=== PATIENT | male | born 1940 ===

== ENCOUNTER → 2024-01-27 | Outpatient (CLI) | payer OTHER ==
[~2024-01-27] MED LIST: CIPR250 PO; FURO20; HYDACE5 PO; OXYACE7.5T PO; POTCHL10ER; RXOXYACE PO
[2024-01-27 17:30] LABS: Source, Urine Clean Catch
[2024-01-27 18:57] LABS: Appearance, Urine Clear (Clear); Bilirubin, Urine Neg (Neg); Blood, Urine Neg (Neg); Color, Urine Yellow (P-Yellow); Glucose Qualitative, Urine Neg (Neg); Ketones, Urine Neg (Neg); Leukocyte Esterase, Urine 1+ (Neg); Nitrite, Urine Neg (Neg); Protein, Urine Neg (Neg); Urobilinogen, Urine NORM (Normal)
[2024-01-27 19:16] LABS: Red Blood Cells, Urine 0-2 /hpf (0-2)
[2024-01-27 19:17] LABS: Bacteria Few /hpf; Squamous Epithelial Cells Not Seen /hpf (Few)
== END ==
LOC: LAB SHORT 17:27 → LAB 17:27
PROVIDERS: Surgery
DX: C61 Malignant neoplasm of prostate (principal)
CPT/HCPCS: 81001; 87086

== ENCOUNTER 2024-10-05 10:25 | Day surgery (SDC) | payer OTHER ==
[~2024-10-05] VITALS: Ht 175.3 cm; Wt 90.3 kg
[~2024-10-05 10:25] MED LIST changes: +Balanced Salt Epinephrine Irrigation Solution 500 mL IR SCH; +Moxifloxacin HCL 0.5 MG/0.1 ML 0.4MLSYR RIGHTEYE SCH; +Ondansetron 4 MG SoluTab MM PRN; +PHENYLEPHRINE\\TROPICAMIDE\\TETRACAINE OPHTHALMIC DILATING SOLN RIGHTEYE PRN; +Povidone-Iodine 450 DROP/30 ML Solution ONE; +Povidone-Iodine 450 DROP/30 ML Solution RIGHTEYE SCH; +Tetracaine HCl/Pf 0.5% Opth Soln 4 ml ONE; +diazePAM 5 MG,diazePAM 2 MG PO SCH
[2024-10-05] MEDS ORDERED: TAMSULOSIN HCL0.4 M1 PO (11:04)
[2024-10-05] MEDS ORDERED: AMLODIPINE BESYL5 MG PO (11:04)
--- NOTE | 2024-10-05 11:10 | NUR ---
10/05/24 1110 Taylor James PT REPORTS ANXIETY AT A 2/10 PRIOR TO ADMINISTRATION OF VALIUM. VALIUM ADMINISTERED AT 1052. PT IS ON PULSE OX; SP02 AT 94%. TETRACAINE IN AT 1057 PLEDGETT IN AT 1058 PT TOLERATED WELL. CALL LIGHT WITHIN REACH
--- NOTE | 2024-10-05 11:36 | NUR ---
10/05/24 1136 Jazmin Montgomery HR: 72 BP: 137/59 SPO2: 99% ON 8L BLOW BY O2
--- NOTE | 2024-10-05 11:47 | NUR ---
10/05/[address] AT BEDSIDE. HEARING AID IN LEFT EAR. HEARING AID IN CASE IN CLEAR BAG FOR RIGHT EAR
[2024-10-05 11:51] VITALS: BP 121/61
== END 2024-10-05 12:05 | disposition home or self-care (01) ==
LOC: ORSCSDS 10:25
PROVIDERS: Student in an Organized Health Care Education/Training Program
PROC: 08RJ3JZ Replacement of Right Lens with Synthetic Substitute, Percutaneous Approach (ICD-10-PCS; principal; 2024-10-05 12:00)
DX: H25.813 Combined forms of age-related cataract, bilateral (principal); Z87.891 Personal history of nicotine dependence; H35.3210 Exudative age-related macular degeneration, right eye, stage unspecified; Z79.899 Other long term (current) drug therapy
CPT/HCPCS: A9270; V2632

== ENCOUNTER 2024-10-13 10:19 | Day surgery (SDC) | payer OTHER ==
[~2024-10-13] VITALS: Ht 175.3 cm; Wt 88.6 kg
[~2024-10-13 10:19] MED LIST changes: +AMLODIPINE BESYL5 MG PO; -Balanced Salt Epinephrine Irrigation Solution 500 mL IR SCH; -Moxifloxacin HCL 0.5 MG/0.1 ML 0.4MLSYR RIGHTEYE SCH; -PHENYLEPHRINE\\TROPICAMIDE\\TETRACAINE OPHTHALMIC DILATING SOLN RIGHTEYE PRN; -Povidone-Iodine 450 DROP/30 ML Solution RIGHTEYE SCH; +TAMSULOSIN HCL0.4 M1 PO; -diazePAM 5 MG,diazePAM 2 MG PO SCH
--- NOTE | 2024-10-13 10:59 | NUR ---
10/13/24 Arlene9 [place] 1058: INITIAL ANXIETY 02/26 PER PT REPORT. 7 MG PO VALIUM GIVEN PER ORDER. PULSE OX ON FINGER, CALL LIGHT IN HAND.
--- NOTE | 2024-10-13 11:38 | NUR ---
10/13/24 1138 Jazmin Montgomery VITALS AT 1136 BP: 113/64 P: 67 O2: 100% WITH 4 LITERS OF OXYGEN VIA NASAL CANNULA
[2024-10-13 11:57] VITALS: BP 122/54
[2024-10-14] MEDS ORDERED: Balanced Salt Epinephrine Irrigation Solution 500 mL IR SCH (06:00)
[2024-10-14] MEDS ORDERED: Moxifloxacin HCL 0.5 MG/0.1 ML 0.4MLSYR LEFTEYE SCH (06:00)
[2024-10-14] MEDS ORDERED: Triamcinolone Inj Susp 40 MG / ML 1ML Vial INJ SCH (06:00)
[2024-10-14] MEDS ORDERED: PHENYLEPHRINE\\TROPICAMIDE\\TETRACAINE OPHTHALMIC DILATING SOLN LEFTEYE PRN (06:00)
[2024-10-14] MEDS ORDERED: diazePAM 2 MG,diazePAM 5 MG PO SCH (06:00)
[2024-10-14] MEDS ORDERED: Povidone-Iodine 450 DROP/30 ML Solution LEFTEYE SCH (06:00)
== END 2024-10-13 12:13 | disposition home or self-care (01) ==
LOC: ORSCSDS 10:19
PROVIDERS: Student in an Organized Health Care Education/Training Program
PROC: 08RK3JZ Replacement of Left Lens with Synthetic Substitute, Percutaneous Approach (ICD-10-PCS; principal; 2024-10-13 12:00)
DX: H25.812 Combined forms of age-related cataract, left eye (principal); H21.81 Floppy iris syndrome; H35.3120 Nonexudative age-related macular degeneration, left eye, stage unspecified; Z96.1 Presence of intraocular lens; Z87.891 Personal history of nicotine dependence; I10 Essential (primary) hypertension; Z79.899 Other long term (current) drug therapy
CPT/HCPCS: A9270; V2632